=== PATIENT | female | born 1990 | race Caucasian/White ===

== ENCOUNTER 2016-07-28 17:50 | Emergency (ER) | payer SELFPAY ==
[~2016-07-28] VITALS: Ht 167.6 cm; Wt 68.2 kg
[~2016-07-28 17:50] MED LIST: AMOX500T PO; MMW SS; PRED20 PO; Z.0.NO CURRENT MEDS
[2016-07-28 17:51] VITALS: BP 136/88; PULSE 104; RESP 12; TEMP 98.1; O2SAT 98
[2016-07-28] MEDS ORDERED: TOPA100T11 PO (18:09)
--- NOTE | 2016-07-28 18:20 | PD ---
HPI Chief Complaint: Pain: Acute or Chronic Time Seen by Provider: 18:10 Travel History International Travel<30 days: No Contact w/Intl Traveler<30days: No Traveled to known affect area: No History of Present Illness HPI 25-year-old female presents for evaluation of medial right ankle pain and swelling. She reports that symptoms initially started 3 days ago when she was a training at a new job at [employer]. She reports that she was having a do a lot of standing and walking at her new job and since then she has had worsening swelling and pain on the medial aspect of the right ankle which prompted evaluation. Pain is an aching pain is worse when walking. She does not recall any specific trauma or mechanism of injury to the ankle. She does not recall any bug bites, puncture wounds. No fevers or chills or drainage. Denies any pain in the right calf, lateral right ankle, right foot. 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 She has no other complaints at this time. PFSH Past Medical History Asthma: Yes Diminished Hearing: No Headaches: Yes Immunizations Current: No Migraines: Yes Tetanus Vaccination: < 5 Years Influenza Vaccination: No ?: Not LMP: 07/2016 Menopausal: No Past Surgical History Surgical History: No Previous Surgery Social History Alcohol Use: No Tobacco Use: Yes (1/2 PPD) Substance Use: No Allergies-Medications (Allergen,Severity, Reaction): Coded Allergies: No Known Allergies (Verified , 07/28/16) Reported Meds & Prescriptions Reported Meds & Active Scripts Active Keflex (Cephalexin) 500 Mg Cap 500 Mg PO Q8H Bactrim DS (Sulfamethoxazole-Trimethoprim) 800-160 Mg Tab 1 Tab PO BID Keflex (Cephalexin) 500 Mg Cap 500 Mg PO Q8H 10 Days Bactrim DS (Sulfamethoxazole-Trimethoprim) 800-160 Mg Tab 1 Tab PO BID Reported Topamax (Topiramate) 100 Mg Tab 100 Mg PO HS Review of Systems Except as stated in HPI: all other systems reviewed are Neg Physical Exam Narrative GENERAL: Well-developed well-nourished female in no acute distress SKIN: Warm and dry. There is a circular area of erythema versus ecchymosis on the medial aspect of the right ankle around the medial malleolus. There is mild associated soft tissue swelling. There is no induration or fluctuance of the skin. No puncture wounds. HEAD: Atraumatic. Normocephalic. EYES: Pupils equal and round. No scleral icterus. No injection or drainage. ENT: No nasal bleeding or discharge. Mucous membranes pink and moist. NECK: Trachea midline. No JVD. CARDIOVASCULAR: Regular rate and rhythm. No murmur appreciated. RESPIRATORY: No accessory muscle use. Clear to auscultation. Breath sounds equal bilaterally. MUSCULOSKELETAL: No obvious deformities. Skin as noted above. There is no swelling around the lateral or anterior aspect of the right ankle. The patient maintains full range of motion of the right ankle. She does have some pain with dorsi and plantar flexion. 2+ dorsalis pedis and posterior tibial pulses. NEUROLOGICAL: Awake and alert. No obvious cranial nerve deficits. Motor grossly within normal limits. Normal speech. Data Data Last Documented VS Vital Signs Date Time Temp Pulse Resp B/P Pulse Ox O2 Delivery O2 Flow Rate FiO2 07/28/16 17:51 98.1 104 12 136/88 98 Room Air Orders Ankle, Complete ([id number]) (07/28/16 ) Splint Or Brace Apply/Monitor (07/28/16 20:33) Crutches (07/28/16 20:33) Sulfamet-Trimeth Ds 800-160 Mg (Bactrim (07/28/16 20:45) Cephalexin (Keflex) (07/28/16 20:45) Brace Ankle Stirrup (07/28/16 ) MDM Medical Decision Making Medical Screen Exam Complete: Yes Emergency Medical Condition: Yes Medical Record Reviewed: Yes Differential Diagnosis Medial ankle sprain, cellulitis, tibia fracture, avulsion fracture, septic arthritis Narrative Course 25-year-old female presents with pain and swelling around the medial aspect of the right ankle which started 3 days ago 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 On examination she has a circular area of erythema versus ecchymosis around the medial right ankle most consistent with medial ankle sprain versus possibly but less likely cellulitis. There are no puncture wounds. I don't suspect a septic joint as she has full range of motion and there is no tenderness to palpation around the remaining aspects of the ankle. The plan at this point in time plan would be to perform an ankle x-ray. The area of redness was circled with a surgical marker. I would have this patient follow up closely in 2 days for recheck and in the meantime I'll place the patient on oral antibiotics. I recommended elevation and immobilization. Diagnosis Primary Impression: Sprain of right medial ankle joint Qualified Code: S93.421A - Sprain of right medial ankle joint, initial encounter Additional Impression: Soft tissue swelling Departure Forms: Tests/Procedures, Work Release Enter return to work date: Jul 30, 2016 Additional Instructions: Medication as prescribed. Ice and elevate. Rest. Tylenol or Motrin for discomfort. Return in 2 days for recheck. Med/Other Pt SpecificInfo: Prescription(s) given, Orthopedic Instructions Scripts Cephalexin (Keflex)500 Mg [id number] Mg PO Q8H #30 CAP Ref 0 Prov:Beverly Haro DO 07/28/16 Sulfamethoxazole-Trimethoprim (Bactrim DS)800-160 Mg Tab1 Tab PO BID #20 TAB Ref 0 Prov:Beverly Haro DO 07/28/16 Cephalexin (Keflex)500 Mg Dev996 Mg PO Q8H 10 Days Ref 0 Prov:Beverly Haro DO 07/28/16 Sulfamethoxazole-Trimethoprim (Bactrim DS)800-160 Mg Tab1 Tab PO BID #20 TAB Ref 0 Prov:Beverly Haro DO 07/28/16 Disposition: 01 DISCHARGE HOME Condition: Stable Weston Abdi Jul 28, 2016 18:20
[2016-07-28] MEDS ORDERED: BACT800T5 PO ×2 (18:54→20:34)
[2016-07-28] MEDS ORDERED: CEPH-460 PO ×2 (18:54→20:34)
--- NOTE | 2016-07-28 20:40 | RADRPT ---
EXAM DATE/TIME: 07/28/2016 18:30 [facility] COMPARISON: No previous studies available for comparison. INDICATIONS : Right ankle pain after fall. MEDICAL HISTORY : None. SURGICAL HISTORY : None. ENCOUNTER: Initial ACUITY: 3 days PAIN SCORE: 10/10 LOCATION: Right medial ankle. FINDINGS: Three view exam was performed of the right ankle. The bony structures are in normal alignment. No e vidence of fracture, dislocation, or soft tissue swelling. The ankle mortise is intact. No radiopaq ue foreign bodies are seen. Bony mineralization is normal. CONCLUSION: Unremarkable examination of the right ankle. Niko Gan MD on July 28, 2016 at 20:38 Board Certified Radiologist. This report was verified electronically.
[2016-07-28] MEDS ORDERED: CEPHALEXIN MONOHYDRATE 500 MG CAP PO ONE (20:45)
[2016-07-28] MEDS ORDERED: SULFAMETHOXAZOLE-TRIMETHOPRIM DS 800-160 MG TAB PO ONE (20:45)
== END 2016-07-28 20:49 | disposition home or self-care (01) ==
LOC: NEPB 17:50
DX: S93.401A Sprain of unspecified ligament of right ankle, initial encounter (principal); X50.9XXA Other and unspecified overexertion or strenuous movements or postures, initial encounter; Y93.89 Activity, other specified; Y92.89 Other specified places as the place of occurrence of the external cause
CPT/HCPCS: 73610; 99283; E0113; L1906

== ENCOUNTER 2016-07-31 19:17 | Emergency (ER) | payer SELFPAY ==
[~2016-07-31] VITALS: Ht 167.6 cm; Wt 68.0 kg
[~2016-07-31 19:17] MED LIST changes: -AMOX500T PO; +BACT800T5 PO; +CEPH-460 PO; -MMW SS; -PRED20 PO; +TOPA100T11 PO; -Z.0.NO CURRENT MEDS
[2016-07-31 19:19] VITALS: BP 118/77; PULSE 117; RESP 16; TEMP 98.8; O2SAT 96
--- NOTE | 2016-07-31 20:01 | PD ---
HPI Chief Complaint: Skin Problem Time Seen by Provider: 20:01 Travel History International Travel<30 days: No Contact w/Intl Traveler<30days: No Traveled to known affect area: No History of Present Illness HPI 25-year-old female presents to the ED for recheck of right ankle pain. Patient was seen in this ED 07/28, prescribed antibiotics, instructed to return for further evaluation. She endorses compliance with Bactrim. She states she has not taken Keflex. Denies fever, chills. Endorses mild increase in swelling of the ankle. PFSH Past Medical History Asthma: Yes Diminished Hearing: No Headaches: Yes Immunizations Current: No Migraines: Yes ?: Not LMP: 07/13/16 Menopausal: No Past Surgical History Surgical History: No Previous Surgery Social History Alcohol Use: No Tobacco Use: Yes (06/20 PPD) Substance Use: No Allergies-Medications (Allergen,Severity, Reaction): Coded Allergies: No Known Allergies (Verified , 07/31/16) Reported Meds & Prescriptions Reported Meds & Active Scripts Active Ibuprofen 800 Mg Tab 800 Mg PO Q8H PRN Keflex (Cephalexin) 500 Mg Cap 500 Mg PO Q8H 10 Days Bactrim DS (Sulfamethoxazole-Trimethoprim) 800-160 Mg Tab 1 Tab PO BID Reported Topamax (Topiramate) 100 Mg Tab 100 Mg PO HS Review of Systems Except as stated in HPI: all other systems reviewed are Neg Physical Exam Narrative GENERAL: Well-developed well-nourished female in no acute distress SKIN: Warm and dry. SKIN: There is an indurated area in the medial malleolus which measures about 3 cm in diameter. It is fluctuant but there is no pointing or drainage. There is a zone of inflammation around it but no lymphangitis. HEAD: Atraumatic. Normocephalic. EYES: PERRLA No scleral icterus. No injection or drainage. NECK: Trachea midline. No JVD. CARDIOVASCULAR: Regular rate and rhythm. No M/R/G RESPIRATORY: No accessory muscle use. Clear to auscultation. Breath sounds equal bilaterally. MUSCULOSKELETAL: 2+ DP pulses bilaterally. And full, active range of motion of the ankle. Minimal pain with plantar and dorsiflexion. Sensation intact to light touch distally. NEUROLOGICAL: Awake and alert. No obvious cranial nerve deficits. Motor grossly within normal limits. Normal speech. Data Data Last Documented VS Vital Signs Date Time Temp Pulse Resp B/P Pulse Ox O2 Delivery O2 Flow Rate FiO2 07/31/16 19:19 98.8 117 16 118/77 96 Room Air Orders Lidocai-Epi 1%-1:100,000 Inj (Xylocaine- (07/31/16 20:15) Wound Culture And Gram Stain (07/31/16 20:11) Ibuprofen (Motrin) (07/31/16 21:00) MDM Medical Decision Making Medical Screen Exam Complete: Yes Emergency Medical Condition: Yes Differential Diagnosis Abscess versus cellulitis versus sepsis versus septic arthritis versus other Narrative Course 25-year-old female presents to the ED for recheck of right ankle pain. Patient was seen in this ED 07/28, prescribed antibiotics, instructed to return for further evaluation. She endorses compliance with Bactrim. She states she has not taken Keflex. Denies fever, chills. Endorses mild increase in swelling of the ankle. Vitals reviewed. Patient tachycardic in triage, resolved in the exam room. Physical exam reveals an 3-4 cm abscess on the medial malleolus of the right ankle. Pulses intact, no limitations to range of motion. Abscess I& D was performed. Please see my procedure note for details. Patient was instructed to have the Keflex filled and take that as prescribed. She was relieved to find out that this cause for dollars at [employer]. She was provided a work note and a prescription for 800 mg ibuprofen. She was administered and 800 mg ibuprofen in the ED. She is instructed to return to the ED in 2 days for packing removal and recheck of the wound. She indicated understanding of the instructions and is amenable to the plan of care. She is stable and discharged home. Procedures Procedure Narrative INCISION AND DRAINAGE OF ABSCESS: The area was prepped and was sterilely draped. A subcutaneous wheal of 1% Xylocaine with epinephrine with a total number 3 mL was used to anesthetize the area properly. A number 11 scalpel was used to make a 1-cm incision across the area of the abscess. The abscess was drained, complex loculations were broken down, and irrigated with normal saline. Cultures were obtained. Quarter inch iodoform packing was placed in the wound. Sterile dressing applied. Patient advised to have packing removed in two days. Diagnosis Primary Impression: Abscess of right lower extremity excluding foot Referrals: Primary Care Physician Patient Instructions: Abscess Incision and Drainage (DC), General Instructions Departure Forms: Tests/Procedures, Work Release Enter return to work date: Aug 03, 2016 Additional Instructions: Return to the ED in 2 days for packing removal and reevaluation. Continue with outpatient antibiotics as previously prescribed. 800 mg ibuprofen 3 times a day as needed for pain. Elevation of the extremity will help to reduce pain and swelling. Return to the ED immediately for fevers, chills. Med/Other Pt SpecificInfo: Prescription(s) given Scripts Ibuprofen 800 Mg [id number] Mg PO Q8H PRN (Pain/Inflammation) #12 TAB Ref 0 Prov:Shirley Asif MD 07/31/16 Disposition: 01 DISCHARGE HOME Condition: Stable Vika Estrada Jul 31, 2016 20:01
[2016-07-31] MEDS ORDERED: LIDOCAINE 1%/EPINEPHrine 1:100,000 SOLN 20 ML VIAL INFIL ONE (20:15)
[2016-07-31] MEDS ORDERED: IBUP800T23 PO (20:59)
[2016-07-31] MEDS ORDERED: IBUPROFEN 800 MG TAB PO ONE (21:00)
== END 2016-07-31 21:48 | disposition home or self-care (01) ==
LOC: NEPA 19:17
DX: L02.415 Cutaneous abscess of right lower limb (principal); B96.89 Other specified bacterial agents as the cause of diseases classified elsewhere; B95.4 Other streptococcus as the cause of diseases classified elsewhere
CPT/HCPCS: 10061; 86403; 87070; 87077; 87186; 87205